=== PATIENT | male | born 1975 ===

== ENCOUNTER 2017-11-29 10:08 | Emergency (ER) | payer SELFPAY ==
[2017-11-29 10:15] VITALS: BP 139/84; PULSE 101; RESP 18; TEMP 99.8; O2SAT 98
[2017-11-29 10:16] VITALS: BMI 28.4
--- NOTE | 2017-11-29 13:05 | ED PDOC ---
HPI: General Adult Time Seen by Provider: 11/29/17 10:44 Chief Complaint (Nursing): Flu-like Symptoms Chief Complaint (Provider): Sore throat, cough, bodyaches History Per: Patient History/Exam Limitations: no limitations Onset/Duration Of Symptoms: Days Have you had recent travel within the past 21 days to any of the following countries: [place], [place], [place] or [place]?: No Current Symptoms Are (Timing): Still Present Additional Complaint(s): 42 yo male with no medical problems presents with sore throat, cough and fever for 3 days. PT states he is also having bodyaches. Temp checked at home after taking tylenol for fever and was 99.0. Pt states that it was much higher, he could tell but did not take any other temperature. No chest pain, no SOB Past Medical History Reviewed: Historical Data, Nursing Documentation, Vital Signs Vital Signs: Last Vital Signs Temp 99.8 F H 11/29/17 10:14 Pulse 101 H 11/29/17 10:14 Resp 18 11/29/17 10:14 BP 139/84 11/29/17 10:14 Pulse Ox 98 11/29/17 10:14 - Medical History PMH: No Chronic Diseases - Surgical History Surgical History: No Surg Hx - Family History Family History: States: No Known Family Hx - Immunization History Hx Tetanus Toxoid Vaccination: No Hx Influenza Vaccination: No Hx Pneumococcal Vaccination: No - Home Medications Home Medications: Ambulatory Orders Medication Instructions Recorded Naproxen [Naprosyn] 1 tab PO BID PRN #20 tab 10/13/17 Azithromycin [Zithromax] 250 mg PO DAILY #6 tab 11/29/17 - Allergies Allergies/Adverse Reactions: Allergies Allergy/AdvReac Type Severity Reaction Status Date / Time Penicillins Allergy ITCHING Verified 11/29/17 10:24 Review of Systems ROS Statement: Except As Marked, All Systems Reviewed And Found Negative Constitutional: Positive for: Fever, Chills. Negative for: Sweats Cardiovascular: Negative for: Chest Pain Respiratory: Positive for: Cough. Negative for: Shortness of Breath, Hemoptysis, SOB with Exertion Gastrointestinal: Negative for: Nausea, Vomiting, Abdominal Pain, Diarrhea Genitourinary Male: Negative for: Dysuria Musculoskeletal: Negative for: Neck Pain, Shoulder Pain Physical Exam - Reviewed Nursing Documentation Reviewed: Yes Vital Signs Reviewed: Yes - Physical Exam Appears: Positive for: Well, Non-toxic, No Acute Distress Head Exam: Positive for: ATRAUMATIC, NORMAL INSPECTION, NORMOCEPHALIC Skin: Positive for: Normal Color, Warm, DRY Eye Exam: Positive for: Normal appearance ENT: Positive for: Normal ENT Inspection Neck: Positive for: Normal, Painless ROM Cardiovascular/Chest: Positive for: Regular Rate, Rhythm Respiratory: Positive for: Normal Breath Sounds. Negative for: Accessory Muscle Use, Respiratory Distress Gastrointestinal/Abdominal: Positive for: Normal Exam, Soft. Negative for: Tenderness Back: Positive for: Normal Inspection Extremity: Positive for: Normal ROM Neurologic/Psych: Positive for: Alert, Oriented - ECG O2 Sat by Pulse Oximetry: 98 Medical Decision Making Medical Decision Making: Influenza (-) Disposition - Clinical Impression Clinical Impression: URI (upper respiratory infection) - Patient ED Disposition Is Patient to be Admitted: No Counseled Patient/Family Regarding: Diagnosis, Need For Followup, Rx Given - Disposition Referrals: [facility] [Outside] Disposition: Routine/Home Disposition Time: 13:08 Condition: GOOD Prescriptions: Azithromycin [Zithromax] 250 mg PO DAILY #6 tab Instructions: Bacterial Upper Respiratory Infection, Adult
== END 2017-11-29 13:22 | disposition home or self-care (01) ==
LOC: H.ER 10:08
DX: J06.9 Acute upper respiratory infection, unspecified (principal); Z88.0 Allergy status to penicillin

== ENCOUNTER 2018-04-19 23:50 | Emergency (ER) | payer OTHER, SELFPAY ==
[2018-04-19 23:51] VITALS: BMI 29.2
[2018-04-20] MEDS ORDERED: Naproxen 500 MG TAB PO STA (03:23)
--- NOTE | 2018-04-20 03:25 | ED PDOC ---
HPI: General Adult Time Seen by Provider: 04/20/18 03:23 Chief Complaint (Nursing): Upper Extremity Problem/Injury Chief Complaint (Provider): left knee pain History Per: Patient (43 y/o male here with left knee pain that occurred when heavy box dropped on it. Notes additional left shoulder pain that occurred from trying to keep box from dropping.) Past Medical History Reviewed: Historical Data, Nursing Documentation, Vital Signs Vital Signs: Last Vital Signs Temp 97.6 F 04/19/18 23:54 Pulse 76 04/19/18 23:54 Resp 16 04/19/18 23:54 BP 128/86 04/19/18 23:54 Pulse Ox 98 04/19/18 23:54 - Medical History PMH: Denies: Chronic Kidney Disease - Family History Family History: States: No Known Family Hx - Immunization History Hx Tetanus Toxoid Vaccination: No Hx Influenza Vaccination: No Hx Pneumococcal Vaccination: No - Home Medications Home Medications: Ambulatory Orders Medication Instructions Recorded Naproxen 375 mg PO Q8 PRN #21 tablet 04/20/18 - Allergies Allergies/Adverse Reactions: Allergies Allergy/AdvReac Type Severity Reaction Status Date / Time Penicillins Allergy ITCHING Verified 04/19/18 23:54 Review of Systems ROS Statement: Except As Marked, All Systems Reviewed And Found Negative Physical Exam - Reviewed Nursing Documentation Reviewed: Yes Vital Signs Reviewed: Yes - Physical Exam Appears: Positive for: Well, Non-toxic, No Acute Distress Head Exam: Positive for: ATRAUMATIC, NORMAL INSPECTION, NORMOCEPHALIC Skin: Positive for: Normal Color, Warm, DRY Eye Exam: Positive for: EOMI, Normal appearance, PERRL ENT: Positive for: Normal ENT Inspection Neck: Positive for: Normal, Painless ROM Cardiovascular/Chest: Positive for: Regular Rate, Rhythm Respiratory: Positive for: CNT, Normal Breath Sounds Gastrointestinal/Abdominal: Positive for: Normal Exam, Soft Back: Positive for: Normal Inspection Extremity: Positive for: Normal ROM Neurological/Psych: Positive for: Awake, Alert, Normal Tone - ECG O2 Sat by Pulse Oximetry: 98 - Progress ED Course And Treament: knee xry:no fx given knee immobilizer and crutch instructions Disposition - Clinical Impression Clinical Impression: Knee injury - Patient ED Disposition Is Patient to be Admitted: No - Disposition Disposition: Routine/Home Disposition Time: 04:20 Condition: FAIR Prescriptions: Naproxen 375 mg PO Q8 PRN #21 tablet PRN Reason: Pain, Moderate (4-7) Instructions: Knee Sprain (DC) Forms: [facility] ED School/Work Excuse Print Language: ARMENIAN
[2018-04-20] MEDS ORDERED: Naproxen 500 MG TAB PO ONE (03:45)
[2018-04-20 05:39] VITALS: BP 130/82; PULSE 75; RESP 18; TEMP 98.6
--- NOTE | 2018-04-20 08:28 | RAD ---
Date of service: 04/20/2018 PROCEDURE: Left Knee Radiographs. HISTORY: Pain. COMPARISON: None. FINDINGS: BONES: Three views of the left knee were performed. No fracture is seen. Mild medial compartment degenerative changes are noted. No tibial plateau depression is seen. Patella is in normal location. Fibula is unremarkable. No loose body is seen. No joint effusion is noted. JOINTS: Mild degenerative joint disease. JOINT EFFUSION: None. OTHER FINDINGS: No periosteal reaction is seen. No erosions are noted. IMPRESSION: No fracture. No joint effusion.
[2018-04-22 04:52] VITALS: O2SAT 98
== END 2018-04-20 05:38 | disposition home or self-care (01) ==
LOC: H.ER 23:50
DX: S80.912A Unspecified superficial injury of left knee, initial encounter (principal); W22.8XXA Striking against or struck by other objects, initial encounter; Y99.0 Civilian activity done for income or pay; Z88.0 Allergy status to penicillin